=== PATIENT | female | born 1970 | race Caucasian/White ===

== ENCOUNTER 2019-04-21 21:53 | Emergency (ER) | payer SELFPAY ==
[~2019-04-21] VITALS: Ht 162.6 cm; Wt 70.2 kg
[~2019-04-21 21:53] MED LIST: BEN25 PO; HYDR28.340 TOP; NITR-58 PO; PHEN-538 PO
[2019-04-21 21:57] VITALS: Ht 162.6 cm; Wt 70.2 kg
[2019-04-21] MEDS ORDERED: PHENAZOPYRIDINE 100 MG TAB PO ONE (23:00)
[2019-04-21 23:34] VITALS: BP 118/74; PULSE 68; RESP 16
== END 2019-04-21 23:35 | disposition home or self-care (01) ==
LOC: FTE 21:53
DX: N39.0 Urinary tract infection, site not specified (principal); L29.9 Pruritus, unspecified; Z87.891 Personal history of nicotine dependence
CPT/HCPCS: 81003; 81025; 99282